=== PATIENT | male | born 1955 | race Caucasian/White ===

== ENCOUNTER 2020-09-12 02:49 | Outpatient (CLI) | payer MEDICARE, OTHER, SELFPAY ==
[2020-09-12 19:47] LABS: SARS-CoV-2 RNA PCR Negative
== END 2020-09-12 02:50 | disposition home or self-care (01) ==
LOC: ANHCOVIDDT 02:50
PROVIDERS: Visit Provider Internal Medicine Gastroenterology
DX: Z01.818 Encounter for other preprocedural examination (principal); Z20.828 Contact with and (suspected) exposure to other viral communicable diseases
CPT/HCPCS: 87635; C9803; U0003

== ENCOUNTER 2020-09-15 00:42 | Day surgery (SDC) | payer MEDICARE, OTHER, SELFPAY ==
[2020-09-11 08:38] VITALS: BMI 22.8
[2020-09-15 09:50] VITALS: BP 126/85; PULSE 68; RESP 20; TEMP 36.4; O2SAT 98
[2020-09-15] MEDS: LACTATED RINGERS 1,000 ML 150 ML IV CONT (10:08)
--- NOTE | 2020-09-15 10:16 | PM.HPGS ---
History of Present Illness History of Present Illness Consent: Risks, benefits, and alternatives have been discussed and questions answered. Patient agrees to proceed with procedure. Chief complaint: Neoplasm Screening Narrative: Ada Sebastian is a 65 year old male here for screening colonoscopy, no issues, last one 20 years ago normal. Review of Systems Constitutional: Constitutional: Denies headache(s) and Denies weakness Eyes: Eyes: Denies blurry vision ENT: Reports Normal hearing present, Denies headache(s) and Denies neck pain Cardiovascular: Cardiovascular: Denies chest pain and Denies dyspnea Respiratory: Respiratory: Denies dyspnea Gastrointestinal: Gastrointestinal: Reports no additional gastrointestinal complaints Genitourinary: Genitourinary: Denies dysuria Musculoskeletal: Musculoskeletal: Denies neck pain Integumentary/Breasts: Skin/Breast: Denies dry skin Neurologic: Reports Normal hearing present, Denies headache(s) and Denies weakness Psychiatric: Psychiatric: Denies anxiety Endocrine: Endocrine: Denies change in body appearance Hematologic/Lymphatic: Hematologic/Lymphatic: Denies easy bleeding Allergic/Immunologic: Allergic/Immunologic: Denies urticaria PMFSH Past Medical History Medical History (Updated 09/15/20 @ 10:16 by Jayant Grace MD) Colon cancer screening Social History Social History Living arrangements: with family Spiritual care concerns: No Meds Home Medications and Allergies Home Medications Medication Instructions Recorded Confirmed Type No Home Medications 09/15/20 09/15/20 History Allergies Allergy/AdvReac Type Severity Reaction Status Date / Time No Known Allergies Allergy Verified 09/15/20 09:49 Vital Signs Vital Signs - 24 hr 09/15/20 09:50 Temperature 97.5 F L Pulse Rate 68 Respiratory Rate 20 Blood Pressure 126/85 Pulse Oximetry 98 Exam Const: General: comfortable and no acute distress HENMT: General nose exam: Normal nares present Eyes: General: appearance normal, both eyes and all related structures Neck: Neck: no JVD Resp: Auscultation: clear to auscultation bilaterally Cardio: Rate: regular rate Rhythm: regular rhythm GI: Inspection: non-distended GI Palp: Yes Soft to palpation Skin: General skin exam: normal color Neuro: General: gait normal Speech: normal speech Extrem: General: normal to inspection Psych: Mental Status: mental status grossly normal Assessment and Plan Assessment and plan (1) Colon cancer screening: Code(s): Z12.11 - Encounter for screening for malignant neoplasm of colon Status: Acute Assessment and Plan: proceed with colonoscopy, he does not want anesthesia
[2020-09-15 10:22] VITALS: BP 138/78; PULSE 64; RESP 19; O2SAT 100
[2020-09-15 10:26] VITALS: BP 146/89; PULSE 81; RESP 21; O2SAT 100
[2020-09-15 10:31] VITALS: BP 120/74; PULSE 63; RESP 19; O2SAT 99
[2020-09-15 10:36] VITALS: BP 142/84; PULSE 63; RESP 22; O2SAT 100
[2020-09-15 10:45] VITALS: BP 125/67; PULSE 55; RESP 17; O2SAT 100
== END 2020-09-15 10:48 | disposition home or self-care (01) ==
PROVIDERS: PCP Family Medicine Sports Medicine; Visit Provider Internal Medicine Gastroenterology
PROC: 0DJD8ZZ Inspection of Lower Intestinal Tract, Via Natural or Artificial Opening Endoscopic (ICD-10-PCS; CPT 45378; principal; 2020-09-15 10:45)
DX: Z12.11 Encounter for screening for malignant neoplasm of colon (principal)
CPT/HCPCS: G0121; J7120